=== PATIENT | male | born 1965 | race Caucasian/White ===

== ENCOUNTER 2018-09-11 15:27 | Emergency (ER) | payer OTHER ==
[~2018-09-11] VITALS: Ht 180.3 cm; Wt 102.7 kg
[~2018-09-11 15:27] MED LIST: ASPI-1264 PO; CITA-278 PO; HYDR12.522 PO; IBUP-1984 PO; NORCO10T PO
[2018-09-11 15:35] VITALS: BP 150/90
[2018-09-11] MEDS ORDERED: NAPR-56 PO (16:31)
[2018-09-11] MEDS ORDERED: ketorolac tromethamine 15mg/ml inj. IM ONE (16:40)
== END 2018-09-11 17:04 | disposition home or self-care (01) ==
LOC: ER 15:28
DX: S40.011A Contusion of right shoulder, initial encounter (principal); M75.21 Bicipital tendinitis, right shoulder; I10 Essential (primary) hypertension; G89.29 Other chronic pain; Z98.890 Other specified postprocedural states; Z79.82 Long term (current) use of aspirin; Z79.899 Other long term (current) drug therapy; W20.8XXA Other cause of strike by thrown, projected or falling object, initial encounter; Y93.89 Activity, other specified; Y92.89 Other specified places as the place of occurrence of the external cause; Y99.8 Other external cause status
CPT/HCPCS: 96372; 99283; J1885

== ENCOUNTER 2018-09-23 10:05 | Outpatient (CLI) | payer OTHER ==
[~2018-09-23] VITALS: Ht 180.3 cm; Wt 101.6 kg
[~2018-09-23 10:05] MED LIST changes: +NAPR-56 PO
[2018-09-23 10:06] VITALS: BP 143/105
[2018-09-25 12:26] VITALS: BP 149/89
== END 2018-09-23 11:16 | disposition home or self-care (01) ==
LOC: ORTHO 10:05
PROVIDERS: ATTEND Nurse Practitioner Family
DX: S46.111A Strain of muscle, fascia and tendon of long head of biceps, right arm, initial encounter (principal); M79.89 Other specified soft tissue disorders; I25.2 Old myocardial infarction; E78.00 Pure hypercholesterolemia, unspecified; I10 Essential (primary) hypertension; F32.9 Major depressive disorder, single episode, unspecified; Z79.82 Long term (current) use of aspirin; Z88.8 Allergy status to other drugs, medicaments and biological substances; W18.12XA Fall from or off toilet with subsequent striking against object, initial encounter; Y93.89 Activity, other specified; Y92.89 Other specified places as the place of occurrence of the external cause; Y99.8 Other external cause status
CPT/HCPCS: 73070; 99215

== ENCOUNTER 2018-10-19 10:54 | Outpatient (CLI) | payer OTHER ==
[~2018-10-19 10:54] MED LIST changes: -ASPI-1264 PO; -CITA-278 PO; -HYDR12.522 PO; -NAPR-56 PO; -NORCO10T PO; +TRAM50TA2 PO
[2018-10-19 12:00] VITALS: BP 112/84
== END 2018-10-19 12:10 | disposition home or self-care (01) ==
LOC: ORTHO 10:54
PROVIDERS: ATTEND Nurse Practitioner Family
DX: S46.211A Strain of muscle, fascia and tendon of other parts of biceps, right arm, initial encounter (principal); I10 Essential (primary) hypertension; I25.2 Old myocardial infarction; Z79.82 Long term (current) use of aspirin; W01.0XXA Fall on same level from slipping, tripping and stumbling without subsequent striking against object, initial encounter; Y93.89 Activity, other specified; Y92.89 Other specified places as the place of occurrence of the external cause; Y99.8 Other external cause status
CPT/HCPCS: G0463

== ENCOUNTER 2018-11-23 11:11 | Outpatient (CLI) | payer OTHER ==
[2018-11-23 11:00] VITALS: BP 160/111
== END 2018-11-23 11:40 | disposition home or self-care (01) ==
LOC: ORTHO 11:11
PROVIDERS: ATTEND Nurse Practitioner Family
DX: S46.211D Strain of muscle, fascia and tendon of other parts of biceps, right arm, subsequent encounter (principal); I10 Essential (primary) hypertension; W01.0XXA Fall on same level from slipping, tripping and stumbling without subsequent striking against object, initial encounter; Y93.89 Activity, other specified; Y92.89 Other specified places as the place of occurrence of the external cause; Y99.8 Other external cause status
CPT/HCPCS: 99213

== ENCOUNTER 2018-12-14 09:03 | Outpatient (CLI) | payer OTHER ==
[2018-12-14 09:03] VITALS: BP 136/95
== END 2018-12-14 09:39 | disposition home or self-care (01) ==
LOC: ORTHO 09:03
PROVIDERS: ATTEND Nurse Practitioner Family
DX: S46.211D Strain of muscle, fascia and tendon of other parts of biceps, right arm, subsequent encounter (principal); I25.2 Old myocardial infarction; I10 Essential (primary) hypertension; Z98.890 Other specified postprocedural states; X58.XXXD Exposure to other specified factors, subsequent encounter
CPT/HCPCS: 99213

== ENCOUNTER 2021-08-16 05:36 | Day surgery (SDC) | payer OTHER ==
[2021-08-13 15:24] LABS: BASOPHILS % (AUTO) 0.4 % (0-1); EOSINOPHILS # (AUTO) 0.1 X10'3 (0-0.9); EOSINOPHILS % (AUTO) 1.2 % (0-6); LYMPHOCYTES # (AUTO) 1.7 X10'3 (1.1-4.8); LYMPHOCYTES % (AUTO) 22.4 % (21-51); MEAN CORPUSCULAR HEMOGLOBIN 31.5 PG (27.0-31.0); MEAN CORPUSCULAR HGB CONC 34.4 g/dL (33.0-36.5); MEAN CORPUSCULAR VOLUME 91.6 FL (78-98); MEAN PLATELET VOLUME 7.7 FL (7.4-10.4); MONOCYTES # (AUTO) 0.6 X10'3 (0-0.9); MONOCYTES % (AUTO) 7.5 % (2-12); NEUTROPHILS # (AUTO) 5.3 X10'3 (1.8-7.7); NEUTROPHILS % (AUTO) 68.5 % (42-75); PRE OP HEMATOCRIT 43.6 % (42.0-52.0); PRE OP PLATELET COUNT 353 X10'3 (140-440); RED BLOOD COUNT 4.76 X10'6 (4.70-6.10); RED CELL DISTRIBUTION WIDTH 13.2 % (11.5-14.5)
[2021-08-13 15:38] LABS: ALBUMIN 3.8 G/DL (3.4-5.0); ALBUMIN/GLOBULIN RATIO 1.2 (1.1-1.5); ALKALINE PHOSPHATASE 84 IU/L (46-116); BLOOD UREA NITROGEN 12 MG/DL (7-18); BUN/CREATININE RATIO 12.1 (5.4-32.0); CALCIUM 8.6 MG/DL (8.5-10.1); CHLORIDE 108 MMOL/L (99-107); CREATININE 0.99 MG/DL (0.60-1.10); PRE OP ALT 26 U/L (30-65); PRE OP ANION GAP 10 (8-16); PRE OP AST 13 U/L (10-37); PRE OP BILIRUB, TOTAL 0.4 MG/DL (0.0-1.0); PRE OP GLUCOSE 120 MG/DL (70-104); PRE OP POTASSIUM 3.9 MMOL/L (3.4-5.1); PRE OP SODIUM 143 MMOL/L (135-145); TOTAL CARBON DIOXIDE 25.3 MMOL/L (24-32); eGFR 78 ML/MIN
[~2021-08-16] VITALS: Ht 177.8 cm; Wt 97.3 kg
[2021-08-16] VITALS (10 sets, daily range): BP systolic 129–144; BP diastolic 76–86
[~2021-08-16 05:36] MED LIST changes: +ASPI-1071 PO; -IBUP-1984 PO; -TRAM50TA2 PO; +cefazolin/dext.iso 2gm/50ml IV ONE; +famotidine 20mg tablet PO ONE; +ringers solution, lacted 1,000 ML IV SCH
[2021-08-16] MEDS ORDERED: LIDOcaine 1% 30ml preserv. free vial ONE (06:44)
[2021-08-16] MEDS ORDERED: BUPIVAcaine/PF 2.5mg/ml (0.25%) 10ml vial ONE ×2 (06:44→06:45)
[2021-08-16] MEDS ORDERED: BUPIVACAINE liposomal/PF 13.3 MG/ML vial IM ONE (06:45)
[2021-08-16] MEDS ORDERED: rocuronium 10mg/ml inj IV ONE (07:37)
[2021-08-16] MEDS ORDERED: fentaNYL/PF 50MCG/1 ML 2ML syringe ONE (07:37)
[2021-08-16] MEDS ORDERED: midazolam 1 mg/ML 2ml injection ONE (07:37)
[2021-08-16] MEDS ORDERED: propofol inj 20 ML IV ONE (07:37)
[2021-08-16] MEDS ORDERED: meperidine/PF 25mg/ml syringe IV PRN ×3 (08:40)
[2021-08-16] MEDS ORDERED: morphine 2 MG/ML inj. syringe IV PRN (08:40)
[2021-08-16] MEDS ORDERED: ringers solution, lacted 1,000 ML IV SCH (08:40)
[2021-08-16] MEDS ORDERED: proCHLORperazine 10 MG/2 ml inj IV PRN (08:40)
[2021-08-16] MEDS ORDERED: ondansetron/PF 4mg/2ml inj IV PRN (08:40)
[2021-08-16] MEDS ORDERED: morphine 4 MG/ML inj SYRINge IV PRN (08:40)
[2021-08-16] MEDS ORDERED: neostigmine methylsulfate 1 MG/ML 10ml vial ONE (08:41)
[2021-08-16] MEDS ORDERED: ondansetron/PF 4mg/2ml inj ONE (08:41)
[2021-08-16] MEDS ORDERED: glycopyrrolate 0.2mg/ml inj ONE (08:41)
[2021-08-16] MEDS ORDERED: dexamethasone sod phosphate 4mg/ml inj. ONE (08:41)
--- NOTE | 2021-08-16 08:54 | NUR ---
Received from OR via [facility] , accompanied by Anesthesiologist MICHAEL and report given by Anesthesiolgist. PATIENT WITH 3 LAP SITES PRESENT TO LEFT ABDOMEN THAT ARE CDI. VSS. 10L MASK ON WITH 100%$ SATURATIONS. PATIENT WITH 20G PI JOHN LEFT UE RUNNING LR AT 100. Addendum: 08/16/21 at 0909 by Tre Ng RN, RN Amended: Links added.
[2021-08-16] MEDS ORDERED: oxyCODONE/APAP 5-325mg tablet PO PRN ×2 (09:10)
--- NOTE | 2021-08-16 10:04 | NUR ---
ALL DC CRITERIA HAS BEEN MET FOR DC HOME. PATIENT PAIN AT A TOLERABLE LEVEL AT THIS TIME. DRESSINGS CDI. PATIENT UNDERSTOOD ALL DC INSTRUCTIONS AND VSS. PATIENT DRESSED WITH ASSIST AND TAKEN OUT VIA WHEELCHAIR TO PERSONAL VEHICLE WHERE SPOUSE DROVE PATIENT HOME. Addendum: 08/16/21 at 1022 by Tre Ng RN, RN Amended: Links added.
== END 2021-08-16 10:04 | disposition home or self-care (01) ==
LOC: PAS 05:36
PROVIDERS: ATTEND Surgery
DX: K43.9 Ventral hernia without obstruction or gangrene (principal); I25.10 Atherosclerotic heart disease of native coronary artery without angina pectoris; E66.9 Obesity, unspecified; Z68.30 Body mass index [BMI] 30.0-30.9, adult; Z98.890 Other specified postprocedural states; Z79.899 Other long term (current) drug therapy; Z20.822 Contact with and (suspected) exposure to COVID-19
CPT/HCPCS: 36415; 49652; 64488; 80053; 82948; 85025; 93005; C1781; C9290; J1100; J2001; J2250; J2405; J2704; J2710; J3010; J3490; S2900; U0003; U0005; Z7506; Z7508; Z7512; A4215; A4618; J7120